=== PATIENT | female | born 1980 | race Caucasian/White ===

== ENCOUNTER 2023-10-30 13:08 | Emergency (ER) | payer SELFPAY ==
--- NOTE | ~2023-10-30 | XR_ITS ---
EXAMINATION: XR shoulder RT min 2V DATE: 10/30/2023 13:38 INDICATION: Right shoulder pain. TECHNIQUE: 3 views of right shoulder were obtained. COMPARISON: None. FINDINGS: Bone alignment is normal. No fracture. Glenohumeral joint is normal. There is mild acromioc lavicular joint osteoarthritis. IMPRESSION: 1. Mild acromioclavicular joint osteoarthritis. Reviewed, dictated and finalized at location A.
--- NOTE | ~2023-10-30 | US_ITS ---
EXAMINATION: US venous doppler UE RT DATE: 10/30/2023 13:55 INDICATION: Right upper limb pain. TECHNIQUE: Grayscale ultrasound images without and with compression and Doppler ultrasound images of the right upper extremity veins were obtained. COMPARISON: None. FINDINGS: The visualized portions of the right internal jugular vein, subclavian vein, axillary vein, brachial veins, basilic vein, cephalic vein, radial vein, and ulnar vein are patent. IMPRESSION: 1. No deep venous thrombosis. Reviewed, dictated and finalized at location A.
--- NOTE | 2023-10-30 13:10 | ED.UPPEXIN ---
HPI - Extremity Injury (Upper) General Chief Complaint: Extremity Injury, Upper Stated Complaint: right shoulder pain Time Seen by Provider: 10/30/23 13:09 Source: patient Mode of arrival: ambulatory Limitations: no limitations History of Present Illness HPI narrative: Patient is a 43-year-old female with right shoulder pain which radiates proximally and distally from the shoulder when moving the arm only. Pain is elicited with movement of the arm. She had no injury. No chest pain. MD complaint: injury to: right and shoulder Onset (ago): day(s) (2) Other Extremity Injury: Right: shoulder Other injuries: none Place: home Severity: moderate Severity scale (1-10): 5 Relieving factors: immobilization Exacerbating factors: movement of extremity Context: other ( Does not remember an injury) Associated symptoms: denies other symptoms Treatments prior to arrival: NSAIDS Related Data Home Medications Medication Instructions Recorded Confirmed bupropion HCl 150 mg 24 hr tablet, 150 mg PO DAILY 10/30/23 10/30/23 extended release oxybutynin chloride 10 mg 10 mg PO DAILY 10/30/23 10/30/23 tablet,extended release 24 hr rivaroxaban 20 mg tablet (Xarelto) 20 mg PO DAILY 10/30/23 10/30/23 Allergies Allergy/AdvReac Type Severity Reaction Status Date / Time estrogen Allergy Intermediate Other Uncoded 10/30/23 13:25 Review of Systems Review of Systems: All systems reviewed & are unremarkable except as noted in HPI and below Constitutional: Constitutional: Reports no additional constitutional complaints Eyes: Eyes: Reports no additional eye complaints ENT: Reports system reviewed and no additional complaints, except as documented Cardiovascular: Cardiovascular: Reports no additional cardiovascular complaints Respiratory: Respiratory: Reports no additional respiratory complaints Gastrointestinal: Gastrointestinal: Reports no additional gastrointestinal complaints Genitourinary: Genitourinary: Reports no additional female genitourinary complaints Musculoskeletal: Musculoskeletal: Reports no additional musculoskeletal complaints Integumentary/Breasts: Skin/Breast: Reports system reviewed and no additional complaints, except as docu Neurologic: Reports system reviewed and no additional complaints, except as documented Psychiatric: Psychiatric: Reports no additional psychiatric complaints Endocrine: Endocrine: Reports no additional endocrine complaints Hematologic/Lymphatic: Hematologic/Lymphatic: Reports no additional hematologic/lymphatic complaints Allergic/Immunologic: Allergic/Immunologic: Reports no additional allergic/immunologic complaints Exam Const: General: healthy appearing Nutritional Appearance: well nourished Orientation/consciousness: patient oriented x3 HENMT: Head: normal to inspection Ears: external ears normal Face/Nose/Sinus: Normal external nose present Eyes: Conjunctivae: conjunctivae normal Pupils: Equal, round and reactive pupils present EOM: EOMs intact bilaterally Neck: Neck: normal visual inspection Chest: Chest palpation & inspection: normal inspection of the chest Resp: Effort & Inspection: normal respiratory effort Auscultation: clear to auscultation bilaterally and no crackles Cardio: Rate: regular rate Rhythm: regular rhythm Heart sounds: no murmurs GI: Inspection: non-distended GI Palp: Yes Soft to palpation and No Tenderness to palpation present (GI) Auscultation: normal bowel sounds : General: Yes bladder normal to palpation Back/Spine/Pelvis: Back: no CVA tenderness Skin: General skin exam: normal color Rashes: no rashes Wounds: no wounds Neuro: General: patient oriented x3 Cranial nerves: Yes Nystagmus not present Speech: normal speech Extrem: General: normal to inspection Other: tender right shoulder with palpation of the shoulder as well as the proximal biceps; radiating pain with palpation to the proximal into the neck as well as the right
[2023-10-30 13:19] VITALS: BP 149/100; PULSE 84; RESP 20; TEMP 36.8; O2SAT 98
[2023-10-30] MEDS: predniSONE 20 MG TABLET 40 MG PO (14:40)
[2023-10-30] MEDS: KETOROLAC (*BKC) 60 MG/2 ML VIAL IM (14:41)
[2023-10-30 15:02] VITALS: BP 140/88; PULSE 82; RESP 20; TEMP 36.9; O2SAT 98
--- NOTE | 2023-10-30 15:05 | PC.NURSE ---
PT REFUSED ICE PACK AND ARM SLING
== END 2023-10-30 15:05 | disposition home or self-care (01) ==
PROVIDERS: Emergency Provider Emergency Medicine
DX: M75.51 Bursitis of right shoulder (principal); M77.9 Enthesopathy, unspecified
CPT/HCPCS: 73030; 93971; 96372; 99284; J1885; J7512